=== PATIENT | male | born 1945 | race Caucasian/White ===

== ENCOUNTER 2023-10-01 13:21 | Outpatient (AMB) | payer MEDICARE, BC, SELFPAY ==
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
[2023-10-01 13:39] VITALS: BP 129/64; PULSE 64; O2SAT 98; BMI 21.7
== END 2023-10-01 14:24 | disposition home or self-care (01) ==
PROVIDERS: PCP Nurse Practitioner Primary Care; Referring Provider Nurse Practitioner Primary Care; Visit Provider Nurse Practitioner Family
DX: M51.36 Other intervertebral disc degeneration, lumbar region (principal); M47.816 Spondylosis without myelopathy or radiculopathy, lumbar region; M41.9 Scoliosis, unspecified; R26.89 Other abnormalities of gait and mobility; Z87.311 Personal history of (healed) other pathological fracture
CPT/HCPCS: 99204

== ENCOUNTER → 2023-10-01 13:21 | Outpatient (BNVA) | payer MEDICARE, BC, SELFPAY | PROVIDERS: PCP Nurse Practitioner Primary Care; Referring Provider Nurse Practitioner Primary Care; Visit Provider Nurse Practitioner Family | DX: M51.36 Other intervertebral disc degeneration, lumbar region (principal); M47.816 Spondylosis without myelopathy or radiculopathy, lumbar region; M41.9 Scoliosis, unspecified; R26.89 Other abnormalities of gait and mobility; Z87.311 Personal history of (healed) other pathological fracture | CPT/HCPCS: 99202 ==

== ENCOUNTER 2023-10-04 12:38 | Outpatient (REF) | payer MEDICARE, BC, SELFPAY | END 2023-10-04 12:39 | disposition home or self-care (01) | LOC: CF 12:38 | DX: Z13.89 Encounter for screening for other disorder (principal) ==

== ENCOUNTER 2023-12-14 13:00 | Outpatient (RCR) | payer MEDICARE, BC, SELFPAY ==
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
== END 2023-12-14 13:56 | disposition home or self-care (01) ==
LOC: HO.PTCHIC 13:00
PROVIDERS: PCP Internal Medicine; Visit Provider Nurse Practitioner Family
DX: M51.360 Other intervertebral disc degeneration, lumbar region with discogenic back pain only (principal)
CPT/HCPCS: 97110; 97112; 97162

== ENCOUNTER 2024-12-21 16:54 | Emergency (ER) | payer MEDICARE, BC, SELFPAY ==
[2024-12-21 17:09] VITALS: BP 166/74; PULSE 118; RESP 18; TEMP 36.3; O2SAT 100; BMI 22.4
--- NOTE | 2024-12-21 17:11 | ED.MALEGU ---
HPI - Male Genitourinary General Chief complaint: Urogenital-Male Stated complaint: catheter tub is blocked Time Seen by Provider: 12/21/24 20:06 Source: patient Limitations: no limitations History of Present Illness ED Provider: Lety Grimes PA-C HPI Narrative: 79-year-old male with a history of urinary retention w/suprapubic catheter, HLD, anxiety, seizure, presents with suprapubic catheter dysfunction. Patient states he has had decreased urine output from the catheter, he is developing pain over suprapubic region. He states he has also constipated. Denies fever or back pain. Related Data Home Medications ?Medication ?Instructions ?Recorded ?Confirmed bupropion HCl 100 mg tablet,12 hr 100 mg PO BID 10/01/23 sustained-release clorazepate dipotassium 15 mg 15 mg PO DAILY 10/01/23 tablet lidocaine 5 % topical patch 1 patch topical DAILY 10/01/23 methenamine hippurate 1 gram tablet 1 g PO BID 10/01/23 paroxetine HCl 40 mg tablet 40 mg PO DAILY 10/01/23 phenytoin sodium extended 100 mg mg PO 10/01/23 capsule simvastatin 20 mg tablet 20 mg PO BEDTIME 10/01/23 Previous Rx's ?Medication ?Instructions ?Recorded levofloxacin 750 mg tablet 750 mg PO Q24H #4 tabs 12/21/24 Allergies Allergy/AdvReac Type Severity Reaction Status Date / Time aspirin Allergy Unknown Flushing Verified 12/21/24 17:10 Review of Systems Review of Systems: Yes all other systems are reviewed and are negative Constitutional: Constitutional: Denies fatigue and Denies fever(s) Cardiovascular: Cardiovascular: Denies chest pain and Denies dyspnea Respiratory: Respiratory: Denies dyspnea Gastrointestinal: Gastrointestinal: Reports abdominal pain, Reports constipation, Denies nausea and Denies vomiting Genitourinary: Genitourinary: Denies dysuria and Denies flank pain Musculoskeletal: Musculoskeletal: Denies back pain Endocrine: Endocrine: Denies fatigue PMFSH Past Medical History Attestation statement: The following information was validated with the patient. Medical History (Updated 12/22/24 @ 00:00 by Fozia Cespedes) Urinary retention Hyperlipidemia Depression Seizure Tremor Enrolled in chronic care management Benzodiazepine dependence Back pain Atonic bladder Apnea Anxiety Allergic rhinitis Surgical History (Updated 10/01/23 @ 13:53 by Paulina Castillo) Hx of nasal septoplasty H/O cystostomy Social History Social History Use of substances other than those prescribed or required for medical reasons: No Advance Directives: Yes Advance Directives Information Provided: No Advance Directives on File: No Physical Exam Vital Signs: Vital Signs: Last Vital Signs Temp 98.3 F 12/21/24 21:57 Pulse 96 12/21/24 21:57 Resp 16 12/21/24 21:57 BP 106/48 L 12/21/24 21:57 Pulse Ox 99 12/21/24 21:57 O2 Del Method Room Air 12/21/24 21:57 BMI result Body Mass Index 22.4 Const: Other: Alert, Orientation/consciousness: patient oriented x3 Resp: Effort & Inspection: normal respiratory effort Cardio: Other: Normal peripheral perfusion : Other: Cath exchanged by another provider from triage Skin: Other: Warm dry no rash Neuro: General: patient oriented x3, gait normal, no focal motor deficits and CN's II-XI intact bilaterally Psych: Other: Cooperative Course Course Course Narrative: This is a Rapid Medical Exam performed in triage by Beth Stoddard PA-C. Full HPI, ROS and PE to be performed by primary ED provider. 79 yo M w/pmhx urinary retention w/suprapubic catheter, HLD, anxiety, seizure, presenting to the ED c/o constipation & decreased UOP - suspects catheter is blocked. Last BM (small amount) this AM. reports abd pain PE: uncomfortable, NAD, ambulating w/steady gait Plan: labs, UA, bladder scan -suprapubic catheter changed without complication. 1000 mL immediate output Medications Administered Discontinued Medications Generic Name Dose Route Start Last Admin Trade Name Sophia PRN Reason Stop Dose Admin Acetaminophen 975 mg 12/21/24 20:26 12/21/24 20:29 Acetaminophen 325 Mg Tablet PO 12/21/24 20:27 975 mg ONCE ONE Administration Levofloxacin 750 mg 12/21/24 21:52 12/21/24 22:00 Levofloxacin 750 Mg Tablet PO 12/21/24 21:53 750 mg ONCE ONE Administration Medical Decision Making Medical Decision Making [facility] Narrative: 79-year-old male with a history of urinary retention w/suprapubic catheter, HLD, anxiety, seizure, presents with suprapubic catheter dysfunction. Patient states he has had decreased urine output from the catheter, he is developing pain over suprapubic region. He states he has also constipated. Denies fever or back pain. Problem: Chronic suprapubic catheter History: Per patient I have considered the following differential diagnoses: Suprapubic catheter dysfunction, UTI, pyelonephritis, renal colic Plan: The catheter was exchanged, screening labs including a urinalysis are in process. The patient has no systemic symptoms, back pain or flank pain to suggest pyelonephritis. This is also likely not renal colic, he has not been complaining of flank pain. The catheter was obstructed. No indication for imaging at this time. I have independently reviewed the following tests: Labs: Slight leukocytosis, no left shift, not anemic, no electrolyte abnormality, urine infected Differential Diagnosis Differential Diagnoses: The differential diagnosis associated with the presentation includes See medical decision-making Admission/Observation Consideration of admission/observation: Escalation of care including admission/observation considered Not applicable Lab Data MDM Lab Attestation statement: I reviewed the patient's lab results. 12/21/24 17:21 12/21/24 17:21 Labs: Lab Results 12/21/24 12/21/24 Range/Units 17:21 20:19 WBC 11.2 H (4.8-10.8) X10*3/uL RBC 4.38 L (4.60-5.80) X10*6/uL Hgb 14.1 (14.0-18.0) g/dl Hct 42.7 (42.0-52.0) % MCV 97.5 (80.0-98.0) fL MCH 32.2 (27.0-33.0) pg MCHC 33.0 (31.0-36.0) g/dl RDW 12.8 (11.0-16.0) % Plt Count 280 (160-400) X10*3/uL MPV 9.3 L (9.4-12.4) fL Immature Gran % (Auto) 0.4 (0.0-0.4) % Neut % (Auto) 73.0 (45-73) % Lymph % (Auto) 17.4 L (20-40) % [place] % (Auto) 7.0 (2-11) % Eos % (Auto) 1.6 (0-4) % Baso % (Auto) 0.6 (0-2) % Lymph # (Auto) 2.0 (1.2-4.9) X10*3/uL [place] # (Auto) 0.8 (0.1-1.2) X10*3/uL Eos # (Auto) 0.2 (0.0-0.4) X10*3/uL Baso # (Auto) 0.1 (0.0-0.2) X10*3/uL Abs Immat Gran (auto) 0.04 H (0.00-0.03) X10*3/uL Absolute Neuts (auto) 8.2 (2.0-8.3) x10*3/uL Absolute Nucleated RBC 0.000 (0.0-0.012) X10*3/uL Nucleated RBC % (auto) 0.0 (0.0-0.2) /100WBC Sodium 140 (135-145) mmol/L Potassium 4.3 (3.3-5.1) mmol/L Chloride 105 (96-108) mmol/L Carbon Dioxide 24 (22-29) mmol/L Anion Gap 15 (12-20) BUN 17 H (9-16) mg/dL Creatinine 0.81 (0.5-1.4) mg/dL Estim Creat Clear Calc 69.9 Estimated GFR > 60 Random Glucose 134 H (60-115) mg/dL Calcium 9.5 (8.4-10.2) mg/dL Magnesium 2.3 (1.6-2.6) mg/dL Total Bilirubin 0.2 (0.0-1.0) mg/dL Direct Bilirubin < 0.2 (0.0-0.5) mg/dL AST 25 (5-37) U/L ALT 28 (0-40) U/L Alkaline Phosphatase 142 H (39-117) U/L Total Protein 7.6 (6.5-8.0) g/dL Albumin 4.7 (3.5-5.0) g/dL Lipase 29 (8-78) U/L Urine Color Yellow Urine Appearance Turbid Urine pH 7.0 (5.0-9.0) Ur Specific [place] 1.015 (1.005-1.025) Urine Protein Trace (Neg-Trace) mg/dL Urine Glucose (UA) Negative (Negative) mg/dL Urine Ketones Negative (Negative) mg/dL Urine Blood Moderate (2+) H (Negative) Urine Nitrite Positive H (Negative) Ur Leukocyte Esterase Large (3+) H (Negative) Urine RBC 11-20 H (0-2) /HPF Urine WBC >50 H (0-5) /HPF Ur Squamous Epith Cells 0-2 (0-2) /HPF Urine Bacteria 4+ (None Seen) Hyaline Casts 0-2 (0-2) /LPF Procedures Catheter Insertion (Urinary) Date of insertion: 12/21/24 Time of insertion: 20:18 Reason for placing indwelling catheter: Urinary obstruction Bladder scan/ultrasound used before catheterization: Yes Estimated amount of urine (mLs): 559 Antiseptic solution prep: Povidone-Iodine Topical anesthesia used: No Catheter type/location: Suprapubic Size (Belarusian): 22 Catheter balloon amount: 30 Results: successfully catheterized-immediate flow Procedure performed: without complications Discharge Plan Discharge Clinical Impression: Suprapubic catheter dysfunction, Urinary tract infection Patient Disposition: Home, Self-Care Instructions: Catheter-associated Urinary Tract Infection (ED) Additional Instructions: The suprapubic catheter was obstructed, likely due to your urinary tract infection. A new catheter was placed. See home care instructions. Take the antibiotic as directed, complete the course. Follow up with your primary care provider within a week to 10 days for a reassessment. Prescriptions: New levofloxacin 750 mg tablet 750 mg PO Q24H Qty: 4 0RF No Action methenamine hippurate 1 gram tablet 1 g PO BID bupropion HCl 100 mg tablet sustained-release 12 hr 100 mg PO BID clorazepate dipotassium 15 mg tablet 15 mg PO DAILY lidocaine 5 % adhesive patch,medicated 1 patch topical DAILY phenytoin sodium extended 100 mg capsule PO simvastatin 20 mg tablet 20 mg PO BEDTIME paroxetine HCl 40 mg tablet 40 mg PO DAILY Interventions: ED Discharge Assessment Last Done: 12/21/24 21:57 Discharge Date/Time: 12/21/24 22:11 Print Language: Amharic
[2024-12-21 17:29] LABS: MANUAL DIFF FLAG NO
[2024-12-21 17:31] LABS: Hematocrit 42.7 % (42.0-52.0); Hemoglobin 14.1 g/dl (14.0-18.0); Imm Gran Abs Auto 0.04 X10*3/uL (0.00-0.03); Imm Gran Pct Auto 0.4 % (0.0-0.4); Lymphocytes Absolute Auto 2.0 X10*3/uL (1.2-4.9); Mean Corpuscular HGB Conc 33.0 g/dl (31.0-36.0); Mean Corpuscular Hemoglobin 32.2 pg (27.0-33.0); Mean Corpuscular Volume 97.5 fL (80.0-98.0); NRBC Abs Auto 0.000 X10*3/uL (0.0-0.012); NRBC Pct Auto 0.0 /100WBC (0.0-0.2); Platelet Count 280 X10*3/uL (160-400); Red Blood Count 4.38 X10*6/uL (4.60-5.80); White Blood Count 11.2 X10*3/uL (4.8-10.8)
--- OUTSIDE RECORDS SUMMARY | 2024-12-21 17:34 | XMS_ITS | Patient Health Record ---
[facility] Organization [facility] [place] Address [address] [place] [address] Care Team Providers Care Christian Counselor Name Role Phone Mauri Bower MD Primary Care Provider Nannette Reinoso Unavailable [phone] Allergies Allergen (clinical drug ingredient) Drug/Non Drug Allergy documented on EMR Reaction Allergy Type Onset Date Status aspirin Aspirin flushing Drug Allergy Active Reason For Referral No Information Medications Medication SIG (Take, Route, Frequency, Duration) Notes Start Date End Date Status Ciclopirox Olamine 0.77 % 1 application Externally Twice a day; Duration: 30 days Active Lidocaine Pain Relief 4 % 1 patch as needed Externally Once a day Not-Taking Clorazepate Dipotassium 15 MG 1 tablet Orally Once a day Active Dilantin 100 MG 1 capsule Orally zahra ry 12 hrs 2 caps Active Paxil 40 MG 1 tablet in the morn ing Orally Once a day Active Wellbutrin Active Methenamine Hippurate 1 GM 1 tablet Orally Twice a day Active Simvastatin 40 MG 1 tablet in the even ing Orally Once a day Active [place] 3 Active Tylenol Active Immunizations Vaccine Route Administration Date Status Comme nts Influenza Unknown 02/20/2024 Administered Social History Tobacco Use: Social History Observation Description Date Details (start date - stop date) Never Smoker NA - NA Alcohol Screen Question Answer Notes Did you have a drink containing alcohol in the p ast year? No Points 0 Interpretation Negative Tobacco use other than smoking: Question Answer Notes Are you an other tobacco user? No Tobacco Control (Standard) Question Answer Notes Tobacco use: Nonsmoker Additional Findings: Tobacco non-user Current no nsmoker AUDIT-C (Standard) Question Answer Notes Did you have a drink containing alcohol in the p ast year? No Points 0 Interpretation Negative Problems Problem Type SNOMED Code ICD Code Onset Dates Problem Status W/U Status Risk Notes Problem Acquired hammer toe of right foot (1205169303931055) Other hammer toe(s) (acquired), right foot (M20.41) Active confirmed Problem Acquired hammer toe of left foot (0748519879903817) Other hammer toe(s) (acquired), left foot (M20.42) Active confirmed Problem Localized, primary osteoarthritis of the ankle and/or foot (507861655) Arthritis of joint of lesser toe, left (M19.072) Active confirmed Problem Localized, primary osteoarthritis of the ankle and/or foot (623859489) Arthritis of joint of lesser toe, right (M19.071) Active confirmed Vital Signs Blood pressure diastolic 60 mm Hg 10/31/2024 Height 5ft 8in in 10/31/2024 Blood pressure systolic 123 mm Hg 10/31/2024 Weight 143 lbs 10/31/2024 BMI 21.74 kg/m2 10/31/2024 Encounters Encounter Location Date Provider Diagnosis [address] [address] 03/11/2024 Nannette Perica Onychomycosis B35.1 ; Tinea pedis of both feet B35.3 ; Pain in right toe(s) M79.674 and Pain in left toe(s) M79.[address] [address] 05/16/2024 Nannette Perica Onychomycosis B35.1 ; Tinea pedis of both feet B35.3 ; Pain in right toe(s) M79.674 ; Pain in left toe(s) M79.675 and Ingrown nail L60.[address] [address] 07/29/2024 Nannette Perica Pain in right toe(s) M79.674 ; Onychomycosis B35.1 and Pain in left toe(s) M79.[address] [address] 10/31/2024 Nannette Arevalo Onychomycosis B35.1 ; Tinea pedis of both feet B35.3 ; Pain in right toe(s) M79.674 and Pain in left toe(s) M79.675 Assessments Encounter Date Diagnosis (ICD Code) Assessment Notes Treatment Notes Treatment Clinical Notes Section Notes 03/11/2024 Onychomycosis (ICD-10 - B35.1) 03/11/2024 Tinea pedis of both feet (ICD-10 - B35.3) 05/16/2024 Onychomycosis (ICD-10 - B35.1) 05/16/2024 Tinea pedis of both feet (ICD-10 - B35.3) 07/29/2024 Pain in right toe(s) (ICD-10 - M79.674) 10/31/2024 Onychomycosis (ICD-10 - B35.1) 10/31/2024 Tinea pedis of both feet (ICD-10 - B35.3) 10/31/2024 Pain in right toe(s) (ICD-10 - M79.674) 07/29/2024 Onychomycosis (ICD-10 - B35.1) 05/16/2024 Pain in right toe(s) (ICD-10 - M79.674) 03/11/2024 Pain in right toe(s) (ICD-10 - M79.674) 03/11/2024 Pain in left toe(s) (ICD-10 - M79.675) 05/16/2024 Pain in left toe(s) (ICD-10 - M79.675) 10/31/2024 Pain in left toe(s) (ICD-10 - M79.675) 07/29/2024 Pain in left toe(s) (ICD-10 - M79.675) 05/16/2024 Ingrown nail (ICD-10 - L60.0) Plan Of Treatment Next Appt Details Provider Name:Nannette Diane santillan, 02/06/2025 12:00:00 PM, [address] [place] [address], [phone], Insurance Providers Payer Name Payer Address Payer Phone Subscriber Number Group Number Insured Name Patient Relationship to Insured Coverage Start Date Coverage End Date [employer] [address] [place] [phone] [id number] Theodore Pa Self - patient is the insured [facility] [address] [place] [address] [phone] [id number] Theodore Pa Self - patient is the insured Medical (General) History Medical History History ICD Code Anxiety Arthritis Back,Hip,and Knee pain CAD (Cholesterol) Cancer, skin Depression Seizures Numbness Measles Chicken pox Surgical History Surgery Date(Month/Year) septoplasty TNA bladder stone removal surgery plastic surgery
[2024-12-21 17:50] LABS: Alanine Aminotransferase 28 U/L (0-40); Albumin Level 4.7 g/dL (3.5-5.0); Alkaline Phosphatase 142 U/L (39-117); Anion Gap 15 (12-20); Aspartate Amino Transferase 25 U/L (5-37); Blood Urea Nitrogen 17 mg/dL (9-16); Calcium 9.5 mg/dL (8.4-10.2); Carbon Dioxide 24 mmol/L (22-29); Chloride 105 mmol/L (96-108); Creatinine Clr Calc Pharmacy 69.9; Estimated Glomerular Filt Rate > 60; Lipase 29 U/L (8-78); Magnesium 2.3 mg/dL (1.6-2.6); Potassium 4.3 mmol/L (3.3-5.1); Sodium 140 mmol/L (135-145); Total Protein 7.6 g/dL (6.5-8.0)
--- NOTE | 2024-12-21 20:26 | PC.NURSE ---
TAMMY Campos replaced suprapubic cath, approx 800ml of urine immediately draining; continues to drain at this time.
[2024-12-21 20:29] LABS: Appearance Urine Turbid; Glucose Urine UA Negative (Negative); PH 7.0 (5.0-9.0); Specific Gravity - Urine 1.015 (1.005-1.025); UMIC TRIGGER UACC YES
[2024-12-21 20:30] VITALS: BP 106/48; PULSE 96; RESP 16; TEMP 36.8; O2SAT 99
[2024-12-21 21:31] LABS: UACC Culture Trigger YES
[2024-12-21 21:57] VITALS: BP 106/48; PULSE 96; RESP 16; TEMP 36.8; O2SAT 99
== END 2024-12-21 22:11 | disposition home or self-care (01) ==
PROVIDERS: Physician Assistant; Emergency Provider Emergency Medicine; PCP Internal Medicine
DX: N39.0 Urinary tract infection, site not specified (principal); R33.9 Retention of urine, unspecified; T83.098A Other mechanical complication of other urinary catheter, initial encounter; Y73.8 Miscellaneous gastroenterology and urology devices associated with adverse incidents, not elsewhere classified; Y92.9 Unspecified place or not applicable; Z79.899 Other long term (current) drug therapy
CPT/HCPCS: 36415; 51702; 51798; 80048; 80076; 81001; 81003; 83690; 83735; 85025; 87086; 87088; 87186; 99283; 99285